=== PATIENT | male | born 1960 | race Caucasian/White ===

== ENCOUNTER 2016-10-29 15:11 | Inpatient (IN) | payer MEDICAID, OTHER, SELFPAY ==
[~2016-10-29] VITALS: Ht 177.8 cm; Wt 109.6 kg
[2016-10-29] MEDS ORDERED: APIX5TAB PO (15:31)
[2016-10-29] MEDS ORDERED: METO-99 PO (15:31)
[2016-10-29] MEDS ORDERED: ACET-1757 PO (15:31)
[2016-10-29] MEDS ORDERED: DIGO250T PO (15:31)
[2016-10-29] MEDS ORDERED: SPIR25TA3 PO (15:31)
[2016-10-29] MEDS ORDERED: OMEG-14 PO (15:31)
[2016-10-29] MEDS ORDERED: ATOR80TA75 PO (15:31)
[2016-10-29] MEDS ORDERED: FURO40TA6 PO (15:31)
[2016-10-29] MEDS ORDERED: LISI-170 PO (15:31)
[2016-10-29] MEDS ORDERED: DILT120T3 PO (15:31)
[2016-10-29] MEDS ORDERED: DILTIAZEM 5 MG/ML, 5ML ONE ×2 (15:44→15:51)
[2016-10-29] MEDS ORDERED: ADENOSINE 6 MG/2 ML ONE (15:44)
[2016-10-29 15:55] LABS: HEMATOCRIT 58.7 % (39.2-51.8); HEMOGLOBIN 19.3 g/dL (13.7-18.0); WHITE BLOOD COUNT 8.6 x10^3/uL (3.4-10)
[2016-10-29] MEDS ORDERED: DILTIAZEM 5 MG/ML, 5ML IV ONE (16:00)
[2016-10-29] MEDS ORDERED: SODIUM CHLORIDE FLUSH 10ML SYR IVF ONE (16:00)
[2016-10-29] MEDS ORDERED: PLEASE ENTER ALLERGIES MC SCH ×2 (16:00)
[2016-10-29 16:05] LABS: BLOOD UREA NITROGEN 18 mg/dL (7-18)
[2016-10-29 16:06] LABS: ASPARTATE AMINO TRANSFERASE 39 U/L (15-37)
[2016-10-29] MEDS ORDERED: DILTIAZEM 5 MG/ML, 5ML IVPush ONE (16:30)
[2016-10-29] MEDS ORDERED: DILTIAZEM 125 MG in SODIUM CHLORIDE 0.9% 100 ML IV ONE ×2 (16:30→23:45)
[2016-10-29] MEDS ORDERED: HEPARIN 5,000 UNITS/ML, 1ML IV PRN ×2 (18:00→23:45)
[2016-10-29] MEDS ORDERED: HEPARIN 25,000 UNITS/500ML PMX 500 ML IV PRN ×2 (18:00→23:45)
[2016-10-29] MEDS ORDERED: HEPARIN 5,000 UNITS/ML, 1ML IV ONE (18:00)
[2016-10-29] MEDS ORDERED: HEPARIN 25,000 UNITS/500ML PMX 500 ML ONE (18:02)
[2016-10-29] MEDS ORDERED: HEPARIN 5,000 UNITS/ML, 1ML ONE (18:02)
[2016-10-29] MEDS ORDERED: APIXABAN 5 MG TABLET PO ONE (19:30)
[2016-10-29] MEDS ORDERED: METOPROLOL TARTRATE 25 MG TABLET PO ONE (19:30)
[2016-10-29] MEDS ORDERED: NS + 20MEQ KCL 1,000 ML IV SCH (19:34)
[2016-10-29] MEDS ORDERED: DIGOXIN 0.25 MG/ML, 2ML ONE (19:54)
[2016-10-29] MEDS ORDERED: ONDANSETRON 2MG/ML, 2ML IVPush PRN (20:00)
[2016-10-29] MEDS ORDERED: ACETAMINOPHEN 325 MG TABLET PO PRN (20:00)
[2016-10-29] MEDS ORDERED: POLYETHYLENE GLYCOL 17 GM PACKET PO PRN (20:00)
[2016-10-29] MEDS ORDERED: HYDROcodone/APAP 5/325 TABLET PO PRN (20:00)
[2016-10-29] MEDS ORDERED: morphine SULFATE 10 MG/ML, 1ML IVPush PRN (20:00)
[2016-10-29] MEDS ORDERED: METOPROLOL TARTRATE 50 MG TABLET PO ONE ×2 (20:00→20:30)
[2016-10-29] MEDS ORDERED: DOCUSATE 100 MG CAPSULE PO PRN (20:00)
[2016-10-29] MEDS ORDERED: DIGOXIN 0.25 MG/ML, 2ML IVPush ONE (20:00)
[2016-10-29] MEDS ORDERED: APIXABAN 5 MG TABLET PO SCH (21:00)
[2016-10-29 23:18] VITALS: BP 106/80
[2016-10-29] MEDS ORDERED: HEPARIN MC SCH (23:30)
[2016-10-29] MEDS: DILTIAZEM 125 MG in SODIUM CHLORIDE 0.9% 100 ML IV SCH (23:45)
[2016-10-30] MEDS: ATORVASTATIN 10 MG TABLET PO SCH ×2 (00:38→21:15)
[2016-10-30 02:14] VITALS: BP 103/72
[2016-10-30 05:10] LABS: BLOOD UREA NITROGEN 27 mg/dL (7-18)
[2016-10-30 06:40] VITALS: BP 113/77
[2016-10-30] MEDS: DIGOXIN 0.25 MG TABLET PO SCH (08:33)
[2016-10-30] MEDS: LISINOPRIL 20 MG TABLET PO SCH (08:34)
[2016-10-30] MEDS: DILTIAZEM CD 180 MG CAP.ER.24H PO SCH (08:34)
[2016-10-30] MEDS: SPIRONOLACTONE 25 MG TABLET PO SCH (08:34)
[2016-10-30] MEDS: FUROSEMIDE 40 MG TABLET PO SCH (08:34)
[2016-10-30] MEDS ORDERED: METOPROLOL TARTRATE 100 MG TABLET PO SCH ×2 (09:00→21:00)
[2016-10-30 13:26] VITALS: BP 110/77
[2016-10-30] MEDS ORDERED: PHARMACY MAY ADJ FOR RENAL FX MC PRN (16:00)
[2016-10-30] MEDS: APIXABAN 5 MG TABLET PO SCH (18:07)
[2016-10-30 19:58] VITALS: BP 94/59
[2016-10-30] MEDS: METOPROLOL TARTRATE 100 MG TABLET PO SCH (21:00)
[2016-10-30] MEDS: DILTIAZEM 125 MG in SODIUM CHLORIDE 0.9% 100 ML IV SCH (23:45)
[2016-10-31 00:26] VITALS: BP 120/82
[2016-10-31] MEDS ORDERED: PNEUMOCOCCAL 23 VACCINE IM-VACC ONE (04:30)
[2016-10-31 05:56] LABS: HEMATOCRIT 51.3 % (39.2-51.8); WHITE BLOOD COUNT 8.3 x10^3/uL (3.4-10)
[2016-10-31 05:58] LABS: BLOOD UREA NITROGEN 30 mg/dL (7-18)
[2016-10-31 08:13] VITALS: BP 118/85
[2016-10-31] MEDS: LISINOPRIL 20 MG TABLET PO SCH (08:50)
[2016-10-31] MEDS: APIXABAN 5 MG TABLET PO SCH ×2 (08:50→22:23)
[2016-10-31] MEDS: SPIRONOLACTONE 25 MG TABLET PO SCH (08:50)
[2016-10-31] MEDS: DIGOXIN 0.25 MG TABLET PO SCH (08:50)
[2016-10-31] MEDS: FUROSEMIDE 40 MG TABLET PO SCH (08:51)
[2016-10-31] MEDS: DILTIAZEM CD 180 MG CAP.ER.24H PO SCH (08:51)
[2016-10-31] MEDS: METOPROLOL TARTRATE 100 MG TABLET PO SCH ×2 (09:00→21:00)
[2016-10-31 14:00] VITALS: BP 106/76
[2016-10-31] MEDS ORDERED: ONDANSETRON 2MG/ML, 2ML IVPush PRN (16:00)
[2016-10-31] MEDS ORDERED: PHARMACY MAY ADJ FOR RENAL FX MC PRN (16:00)
[2016-10-31] MEDS ORDERED: morphine SULFATE 10 MG/ML, 1ML IVPush PRN (16:00)
[2016-10-31] MEDS ORDERED: POLYETHYLENE GLYCOL 17 GM PACKET PO PRN (16:00)
[2016-10-31] MEDS ORDERED: DOCUSATE 100 MG CAPSULE PO PRN (16:00)
[2016-10-31] MEDS ORDERED: ACETAMINOPHEN 325 MG TABLET PO PRN (16:00)
[2016-10-31] MEDS ORDERED: HYDROcodone/APAP 5/325 TABLET PO PRN (16:00)
[2016-10-31 19:31] VITALS: BP 101/70
[2016-10-31 21:39] VITALS: BP_SYST 105; BP_SYST 109; BP_DIAS 71
[2016-10-31] MEDS: ATORVASTATIN 10 MG TABLET PO SCH (21:43)
[2016-11-01 02:30] VITALS: BP 129/84
[2016-11-01 05:42] LABS: BLOOD UREA NITROGEN 25 mg/dL (7-18)
[2016-11-01 07:37] VITALS: BP 119/89
[2016-11-01] MEDS: SPIRONOLACTONE 25 MG TABLET PO SCH (08:42)
[2016-11-01] MEDS: FUROSEMIDE 40 MG TABLET PO SCH (08:43)
[2016-11-01] MEDS: DILTIAZEM CD 180 MG CAP.ER.24H PO SCH (08:43)
[2016-11-01] MEDS: APIXABAN 5 MG TABLET PO SCH (08:43)
[2016-11-01] MEDS: DIGOXIN 0.25 MG TABLET PO SCH (08:43)
[2016-11-01] MEDS: LISINOPRIL 20 MG TABLET PO SCH (08:44)
[2016-11-01 13:52] VITALS: BP 123/80
== END 2016-11-01 16:00 | disposition home or self-care (01) | DRG 308 ==
LOC: ED 15:51 → EDIP 19:11 → 5SO 22:40 → DCLOUNGE 11-01 15:30
PROVIDERS: ADMIT Family Medicine; ATTEND Family Medicine
DX: I47.1 Supraventricular tachycardia (principal); N17.0 Acute kidney failure with tubular necrosis; D68.69 Other thrombophilia; I48.92 Unspecified atrial flutter; D75.1 Secondary polycythemia; N18.3 Chronic kidney disease, stage 3 (moderate); I13.0 Hypertensive heart and chronic kidney disease with heart failure and stage 1 through stage 4 chronic kidney disease, or unspecified chronic kidney disease; I50.42 Chronic combined systolic (congestive) and diastolic (congestive) heart failure; E86.0 Dehydration; I48.91 Unspecified atrial fibrillation; I34.0 Nonrheumatic mitral (valve) insufficiency; Z79.899 Other long term (current) drug therapy; Z91.19 Patient's noncompliance with other medical treatment and regimen
CPT/HCPCS: 36415; 71010; 76770; 80048; 80053; 80162; 83735; 83880; 84436; 84439; 84443; 84484; 85025; 85520; 85610; 85730; 87324; 93005; 99291; J1644; J3480; J1160

== ENCOUNTER 2019-11-24 12:11 | Inpatient (IN) | payer MEDICAID, MEDICARE, OTHER ==
[~2019-11-24] VITALS: Ht 177.8 cm; Wt 112.5 kg
[~2019-11-24 12:11] MED LIST: ACET-2065 PO; APIX5TAB PO; ATOR-2 PO; DIGO250T3 PO; DILT120T3 PO; FURO40TA6 PO; LISI-170 PO; METO-99 PO; OMEG-14 PO; SPIR25TA5 PO
--- NOTE | 2019-11-24 12:22 | NUR ---
PT BIB [facility] FOR CHEST PAIN, SOB, FEVER, DIZZINESS X A COUPLE DAYS. PT STATES HE WENT TO [facility] 2 DAYS AGO FOR SAME COMPLAINT. STATES THEY DID A RAPID COVID TEST AND IT WAS NEGATIVE. PT STATES HE MOVED HERE FROM [place] A WEEK AGO, IS ON DISABILITY FOR HEART FAILURE, TEMPORARILY STAYING [facility]. PT A&OX4, TACHYPNEIC & TACHYCARDIC. ERP AT BS IMMEDIATELY. EKG DONE AT BS.
[2019-11-24] MEDS ORDERED: SODIUM CHLORIDE FLUSH 10ML SYR IVF ONE (12:30)
--- NOTE | 2019-11-24 12:30 | NUR ---
PT REPORTS HE HASN'T BEEN TAKING ANY PRESCRIBED MEDS IN OVER A YEAR.
[2019-11-24 12:51] LABS: MEAN CORPUSCULAR HEMOGLOBIN 30.2 pg (27.5-34.5); MEAN CORPUSCULAR HGB CONC 33.2 g/dL (33.2-36.2); MEAN CORPUSCULAR VOLUME 91.1 fL (81-97); MEAN PLATELET VOLUME 9.1 fL (7.4-10.4); PLATELET COUNT 180 x10^3/uL (130-400); RED BLOOD COUNT 5.15 x10^6/uL (4.38-5.82); RED CELL DISTRIBUTION WIDTH 13.2 % (9.4-14.8)
[2019-11-24 12:57] LABS: INTERNATIONAL NORMALIZED RATIO 1.04 (0.93-1.1); PROTHROMBIN TIME 10.7 Seconds (9.6-11.5)
[2019-11-24 12:58] LABS: ALANINE AMINOTRANSFERASE 21 U/L (12-78); ALBUMIN 3.5 g/dL (3.4-5.0); ANION GAP 7 mmol/L (5-15); CALCIUM 9.2 mg/dL (8.5-10.1); CHLORIDE 105 mmol/L (98-107)
[2019-11-24 13:03] LABS: ALKALINE PHOSPHATASE 71 U/L (45-117); BILIRUBIN,TOTAL 1.8 mg/dL (0.2-1.0); TOTAL PROTEIN 7.3 g/dL (6.4-8.2); TROPONIN I < 0.015 ng/mL (0.000-0.045)
[2019-11-24 13:07] LABS: BASOPHILS # (AUTO) 0.05 x10^3/uL (0-0.1); BASOPHILS % (AUTO) 0 % (0-1); EOSINOPHILS # (AUTO) 0.01 x10^3/uL (0-0.4); EOSINOPHILS % (AUTO) 0 % (1-7); LYMPHOCYTES # (AUTO) 1.74 x10^3/uL (1-3.4); LYMPHOCYTES % (AUTO) 11 % (22-44); MD SCAN; MONOCYTES # (AUTO) 1.48 x10^3/uL (0.2-0.8); MONOCYTES % (AUTO) 9 % (2-9); NEUTROPHILS # (AUTO) 12.48 x10^3/uL (1.8-6.8); NEUTROPHILS % (AUTO) 79 % (42-75)
[2019-11-24] MEDS ORDERED: ACETAMINOPHEN 500 MG TABLET PO ONE (13:30)
--- NOTE | 2019-11-24 13:50 | NUR ---
PT HAD LARGE AMOUNT OF DIARRHEA FROM [facility] WHEN [facility] PICKED HIM UP. ASSISTED PT TO SHOWER ROOM IN AND PT TOOK SHOWER.
[2019-11-24] MEDS ORDERED: CEFTRIAXONE PMX 1GM/50ML 50 ML IV ONE (14:00)
[2019-11-24] MEDS ORDERED: CEFTRIAXONE PMX 1GM/50ML 50 ML ONE (14:01)
[2019-11-24] MEDS ORDERED: ACETAMINOPHEN 500 MG TABLET ONE (14:01)
--- NOTE | 2019-11-24 14:15 | NUR ---
ADMITTING SUPERVISOR WOOD ROOM WAS IN TO SPEAK WITH PT.
[2019-11-24] MEDS ORDERED: DIPHENHYDRAMINE 50 MG CAPSULE PO PRN (14:30)
[2019-11-24] MEDS ORDERED: MELATONIN 5 MG TABLET PO PRN (14:30)
[2019-11-24] MEDS ORDERED: ONDANSETRON 2MG/ML, 2ML IVPush PRN (14:30)
[2019-11-24] MEDS ORDERED: POLYETHYLENE GLYCOL 17 GM PACKET PO PRN (14:30)
[2019-11-24] MEDS ORDERED: BISACODYL 10 MG SUPP PR PRN (14:30)
[2019-11-24] MEDS: CEFTRIAXONE PMX 2GM/50ML 50 ML IV SCH (14:30)
[2019-11-24] MEDS ORDERED: POTASSIUM CHLORIDE 20 MEQ TAB.ER.PRT ONE (14:53)
[2019-11-24] MEDS ORDERED: POTASSIUM CHLORIDE 20 MEQ TAB.ER.PRT PO ONE (15:00)
[2019-11-24] MEDS ORDERED: DOXYCYCLINE 100 MG in DEXTROSE 5% 250 ML IV SCH (15:00)
[2019-11-24] MEDS: DOXYCYCLINE 100 MG in DEXTROSE 5% 250 ML IV SCH (15:04)
[2019-11-24] MEDS ORDERED: ENOXAPARIN 40 MG/0.4 ML ONE (17:02)
[2019-11-24] MEDS: ENOXAPARIN 40 MG/0.4 ML SQ SCH (17:05)
--- NOTE | 2019-11-24 17:07 | NUR ---
MEAL TRAY PROVIDED TO PT. AWAITING ROOM ASSIGNMENT UPSTAIRS.
[2019-11-24 17:56] LABS: TROPONIN I < 0.015 ng/mL (0.000-0.045)
--- NOTE | 2019-11-24 18:21 | NUR ---
BREAK RN- PT RESTING AT EDGE OF BED, CALL LIGHT IN REACH.
--- NOTE | 2019-11-24 19:45 | NUR ---
PT FREQUENTLY WITH NASAL CANNULA OFF. REMINDED PT TO KEEP O2 IN PLACE. PT ABLE TO GET UP TO SIDE OF BED BY HIMSELF. REMINDED PT OF FALL PRECAUTIONS.
[2019-11-24 22:48] VITALS: BP 140/90
[2019-11-25 00:50] VITALS: BP 134/86
[2019-11-25 01:09] LABS: TROPONIN I < 0.015 ng/mL (0.000-0.045)
[2019-11-25] MEDS: DOXYCYCLINE 100 MG in DEXTROSE 5% 250 ML IV SCH ×2 (03:07→14:55)
[2019-11-25] MEDS: CEFTRIAXONE PMX 2GM/50ML 50 ML IV SCH (05:18)
[2019-11-25 06:30] LABS: BASOPHILS # (AUTO) 0.05 x10^3/uL (0-0.1); BASOPHILS % (AUTO) 0 % (0-1); EOSINOPHILS # (AUTO) 0.15 x10^3/uL (0-0.4); EOSINOPHILS % (AUTO) 1 % (1-7); LYMPHOCYTES # (AUTO) 2.22 x10^3/uL (1-3.4); LYMPHOCYTES % (AUTO) 19 % (22-44); MD NO; MEAN CORPUSCULAR HEMOGLOBIN 29.8 pg (27.5-34.5); MEAN CORPUSCULAR HGB CONC 32.3 g/dL (33.2-36.2); MEAN CORPUSCULAR VOLUME 92.4 fL (81-97); MEAN PLATELET VOLUME 8.9 fL (7.4-10.4); MONOCYTES # (AUTO) 1.32 x10^3/uL (0.2-0.8); MONOCYTES % (AUTO) 11 % (2-9); NEUTROPHILS # (AUTO) 8.12 x10^3/uL (1.8-6.8); NEUTROPHILS % (AUTO) 69 % (42-75); PLATELET COUNT 142 x10^3/uL (130-400); RED BLOOD COUNT 4.81 x10^6/uL (4.38-5.82); RED CELL DISTRIBUTION WIDTH 13.7 % (9.4-14.8)
[2019-11-25 06:33] LABS: ANION GAP 5 mmol/L (5-15); CALCIUM 9.1 mg/dL (8.5-10.1); CHLORIDE 105 mmol/L (98-107); CREATININE 1.06 mg/dL (0.7-1.3)
[2019-11-25 07:11] VITALS: BP 146/88
[2019-11-25] MEDS: SENNA/DOCUSATE TABLET PO SCH (07:52)
[2019-11-25] MEDS: ACETAMINOPHEN 325 MG TABLET PO PRN ×2 (07:52→14:55)
[2019-11-25] MEDS ORDERED: OMNIPAQUE 350 MG/ML, 75ML BOTTLE ONE (09:48)
[2019-11-25] MEDS: GUAIFENESIN/DM 200-20MG, 10ML UDC PO PRN ×2 (10:13→20:39)
[2019-11-25 12:53] VITALS: BP 150/90
[2019-11-25] MEDS: ENOXAPARIN 40 MG/0.4 ML SQ SCH (14:55)
[2019-11-25 19:00] VITALS: BP 129/81
[2019-11-25] MEDS: DOXYCYCLINE 100MG TABLET PO SCH (20:39)
[2019-11-26 02:12] VITALS: BP 146/93
[2019-11-26 03:57] LABS: CLOSTRIDIUM DIFFICILE ANTIGEN NEGATIVE; CLOSTRIDIUM DIFFICILE TOXIN NEGATIVE (Negative)
[2019-11-26 05:06] LABS: BASOPHILS # (AUTO) 0.02 x10^3/uL (0-0.1); BASOPHILS % (AUTO) 0 % (0-1); EOSINOPHILS # (AUTO) 0.27 x10^3/uL (0-0.4); EOSINOPHILS % (AUTO) 3 % (1-7); LYMPHOCYTES # (AUTO) 1.48 x10^3/uL (1-3.4); LYMPHOCYTES % (AUTO) 14 % (22-44); MD NO; MEAN CORPUSCULAR HGB CONC 32.7 g/dL (33.2-36.2); MEAN CORPUSCULAR VOLUME 91.6 fL (81-97); MONOCYTES # (AUTO) 1.23 x10^3/uL (0.2-0.8); MONOCYTES % (AUTO) 12 % (2-9); NEUTROPHILS # (AUTO) 7.66 x10^3/uL (1.8-6.8); NEUTROPHILS % (AUTO) 72 % (42-75); PLATELET COUNT 159 x10^3/uL (130-400); RED BLOOD COUNT 4.82 x10^6/uL (4.38-5.82); RED CELL DISTRIBUTION WIDTH 13.1 % (9.4-14.8)
[2019-11-26 05:12] LABS: ANION GAP 7 mmol/L (5-15); CALCIUM 9.2 mg/dL (8.5-10.1); CHLORIDE 105 mmol/L (98-107)
[2019-11-26 05:13] LABS: CREATININE 0.87 mg/dL (0.7-1.3)
[2019-11-26] MEDS: CEFTRIAXONE PMX 2GM/50ML 50 ML IV SCH (05:13)
[2019-11-26 07:02] VITALS: BP 129/88
[2019-11-26] MEDS: SENNA/DOCUSATE TABLET PO SCH (07:23)
[2019-11-26] MEDS: DOXYCYCLINE 100MG TABLET PO SCH (09:21)
[2019-11-26] MEDS: GUAIFENESIN/DM 200-20MG, 10ML UDC PO PRN ×2 (09:21→16:37)
[2019-11-26] MEDS ORDERED: LOPERAMIDE 2 MG CAPSULE PO PRN (11:00)
[2019-11-26 12:26] VITALS: BP 147/85
[2019-11-26] MEDS: ENOXAPARIN 40 MG/0.4 ML SQ SCH (14:30)
[2019-11-26] MEDS ORDERED: LORazepam 1MG TABLET PO PRN ×4 (18:00)
[2019-11-26] MEDS ORDERED: LORazepam 0.5MG TABLET PO PRN (18:00)
[2019-11-26] MEDS ORDERED: LORazepam 2 MG/ML, 1ML IV PRN ×5 (18:00)
[2019-11-26] MEDS ORDERED: AZITHROMYCIN 500 MG in SODIUM CHLORIDE 0.9% 250 ML IV SCH (18:30)
[2019-11-26 18:59] VITALS: BP 130/88
[2019-11-26] MEDS: ACETAMINOPHEN 325 MG TABLET PO PRN (19:48)
[2019-11-27 01:47] VITALS: BP 107/75
[2019-11-27] MEDS: CEFTRIAXONE PMX 2GM/50ML 50 ML IV SCH (05:17)
[2019-11-27 05:56] LABS: CHLORIDE 107 mmol/L (98-107)
[2019-11-27 06:01] LABS: BASOPHILS # (AUTO) 0.04 x10^3/uL (0-0.1); BASOPHILS % (AUTO) 1 % (0-1); EOSINOPHILS % (AUTO) 4 % (1-7); LYMPHOCYTES % (AUTO) 23 % (22-44); MD NO; MEAN CORPUSCULAR HEMOGLOBIN 29.8 pg (27.5-34.5); MEAN CORPUSCULAR HGB CONC 32.6 g/dL (33.2-36.2); MEAN CORPUSCULAR VOLUME 91.3 fL (81-97); MEAN PLATELET VOLUME 8.8 fL (7.4-10.4); MONOCYTES # (AUTO) 1.14 x10^3/uL (0.2-0.8); MONOCYTES % (AUTO) 12 % (2-9); NEUTROPHILS # (AUTO) 5.57 x10^3/uL (1.8-6.8); NEUTROPHILS % (AUTO) 60 % (42-75); PLATELET COUNT 194 x10^3/uL (130-400); RED BLOOD COUNT 4.82 x10^6/uL (4.38-5.82); RED CELL DISTRIBUTION WIDTH 13.3 % (9.4-14.8)
[2019-11-27 06:13] LABS: ANION GAP 6 mmol/L (5-15); CALCIUM 9.3 mg/dL (8.5-10.1); CREATININE 0.96 mg/dL (0.7-1.3)
[2019-11-27 07:07] VITALS: BP 154/86
[2019-11-27] MEDS: SENNA/DOCUSATE TABLET PO SCH (09:00)
[2019-11-27 12:21] VITALS: BP 125/85
[2019-11-27] MEDS ORDERED: METO25TA35 PO (13:38)
[2019-11-27] MEDS ORDERED: LISI-167 PO (13:38)
[2019-11-27] MEDS ORDERED: AZIT500T10 PO (13:38)
[2019-11-27] MEDS ORDERED: Senna/Docusate PO (13:38)
[2019-11-27] MEDS ORDERED: CEFD300C37 PO (13:38)
[2019-11-27] MEDS: ENOXAPARIN 40 MG/0.4 ML SQ SCH (14:30)
== END 2019-11-27 18:16 | disposition home or self-care (01) | DRG 871 ==
LOC: ED 13:09 → EDIP 13:31 → 4WST 20:52
PROVIDERS: ADMIT Family Medicine; ATTEND Internal Medicine
DX: A41.9 Sepsis, unspecified organism (principal); J96.01 Acute respiratory failure with hypoxia; J18.1 Lobar pneumonia, unspecified organism; I47.1 Supraventricular tachycardia; E03.9 Hypothyroidism, unspecified; E87.6 Hypokalemia; I11.0 Hypertensive heart disease with heart failure; I48.91 Unspecified atrial fibrillation; I50.9 Heart failure, unspecified; D69.6 Thrombocytopenia, unspecified; D75.1 Secondary polycythemia; M79.89 Other specified soft tissue disorders; F10.10 Alcohol abuse, uncomplicated; Z20.828 Contact with and (suspected) exposure to other viral communicable diseases; Z59.0 Homelessness; Z91.19 Patient's noncompliance with other medical treatment and regimen; Z79.899 Other long term (current) drug therapy; Z79.891 Long term (current) use of opiate analgesic; Z82.49 Family history of ischemic heart disease and other diseases of the circulatory system
CPT/HCPCS: 36415; 36600; 71045; 71275; 80048; 80053; 82803; 83605; 83735; 83880; 84145; 84443; 84484; 85025; 85379; 85610; 85730; 87040; 87070; 87205; 87324; 93005; G0378; J0456; J0696; J1650; J7060; Q9967; J7050

== ENCOUNTER 2019-12-15 11:30 | Emergency (ER) | payer MEDICARE ==
[~2019-12-15] VITALS: Ht 185.4 cm; Wt 120.0 kg
[~2019-12-15 11:30] MED LIST changes: +AZIT500T10 PO; +CEFD300C37 PO; +LISI-167 PO; +METO25TA35 PO; +Senna/Docusate PO
[2019-12-15] MEDS ORDERED: THIAMINE 100 MG/ML, 2ML IM ONE (12:00)
[2019-12-15 12:02] VITALS: BP 126/78
[2019-12-15 12:27] LABS: ALBUMIN 3.6 g/dL (3.4-5.0); ANION GAP 8 mmol/L (5-15); CHLORIDE 110 mmol/L (98-107); CREATININE 1.07 mg/dL (0.7-1.3)
--- NOTE | 2019-12-15 13:58 | NUR ---
pt resting in bed. nadn. pt offered crackers and juice but declined.
[2019-12-15] MEDS ORDERED: THIAMINE 100MG TABLET ONE (14:06)
--- NOTE | 2019-12-15 14:21 | NUR ---
PT MEDICATED PER EMAR. EDMD OK'D TO GIVE PO THIAMINE. PT TOLERATED WELL.
== END 2019-12-15 15:49 | disposition home or self-care (01) ==
LOC: ED 14:35
DX: F10.220 Alcohol dependence with intoxication, uncomplicated (principal); I11.0 Hypertensive heart disease with heart failure; I50.9 Heart failure, unspecified; I48.92 Unspecified atrial flutter; Y90.9 Presence of alcohol in blood, level not specified
CPT/HCPCS: 36415; 80048; 80307; 82040; 99283

== ENCOUNTER 2019-12-21 13:34 | Emergency (ER) | payer MEDICARE ==
[~2019-12-21] VITALS: Ht 172.7 cm; Wt 109.1 kg
--- NOTE | 2019-12-21 13:36 | NUR ---
PT BROUGHT IN BY [facility] FOR CHIEF COMPLAINT OF CP & DIZZINESS FOR "FEW DAYS". P NONCOMPLIANT WITH MEDS. NITRO X1 & ASA ADMINISTERED TAX INVESTIGATOR
--- NOTE | 2019-12-21 13:45 | NUR ---
IMMANUEL GARDNER AT BEDSIDE FOR EVALUATION
[2019-12-21] MEDS ORDERED: PLEASE ENTER WEIGHT MC SCH (14:00)
[2019-12-21] MEDS ORDERED: ASPIRIN 81 MG TABLET CHEW PO ONE (14:00)
[2019-12-21 14:15] LABS: ANION GAP 5 mmol/L (5-15); BASOPHILS % (AUTO) 1 % (0-1); CALCIUM 9.3 mg/dL (8.5-10.1); CHLORIDE 106 mmol/L (98-107); CREATININE 1.56 mg/dL (0.7-1.3); EOSINOPHILS % (AUTO) 0 % (1-7); LYMPHOCYTES % (AUTO) 30 % (22-44); MEAN CORPUSCULAR HEMOGLOBIN 29.5 pg (27.5-34.5); MEAN CORPUSCULAR HGB CONC 32.9 g/dL (33.2-36.2); MEAN PLATELET VOLUME 9.7 fL (7.4-10.4); MONOCYTES % (AUTO) 18 % (2-9); NEUTROPHILS % (AUTO) 52 % (42-75); PLATELET COUNT 101 x10^3/uL (130-400); RED BLOOD COUNT 6.14 x10^6/uL (4.38-5.82); RED CELL DISTRIBUTION WIDTH 13.9 % (9.4-14.8)
[2019-12-21 14:16] LABS: ALBUMIN 3.6 g/dL (3.4-5.0)
[2019-12-21 14:18] LABS: MD NO
[2019-12-21 14:19] LABS: TROPONIN I 0.049 ng/mL (0.000-0.045)
[2019-12-21] MEDS ORDERED: CEFTRIAXONE PMX 1GM/50ML 50 ML IVPB ONE (14:30)
[2019-12-21] MEDS ORDERED: CEFTRIAXONE PMX 1GM/50ML 50 ML ONE (14:52)
--- NOTE | 2019-12-21 15:06 | NUR ---
CHAPIS GARDNER AT BEDSIDE TO DISCUSS POC.
[2019-12-21 15:39] LABS: TROPONIN I 0.044 ng/mL (0.000-0.045)
[2019-12-21 15:59] VITALS: BP 136/96
--- NOTE | 2019-12-21 15:59 | NUR ---
Note eulogio in EDM - 12/21/19 at 1600 by BNICHOLS TASK RN: PT RESTING ON GURNEY. LEMUS VSS. AWARE OF POC FOR ADMIT AND IS AGREEABLE.
--- NOTE | 2019-12-21 16:00 | NUR ---
PT RESTING ON GURNEY. NADN. JC.
== END 2019-12-21 16:20 | disposition home or self-care (01) ==
LOC: ED 16:14
DX: J18.9 Pneumonia, unspecified organism (principal); I11.0 Hypertensive heart disease with heart failure; I50.9 Heart failure, unspecified; I25.2 Old myocardial infarction; I48.92 Unspecified atrial flutter
CPT/HCPCS: 36415; 71045; 80048; 82040; 84484; 85025; 96365; 99284; J0696